=== PATIENT | male | born 1970 | race Caucasian/White ===

== ENCOUNTER 2022-06-01 20:28 | Emergency (ER) | payer OTHER ==
[2022-06-01] MEDS ORDERED: Ketorolac 60 MG/2 ML SDV IM ONE (20:45)
[2022-06-01 21:27] LABS: CORONAVIRUS COVID-19 NAA POSITIVE (NEGATIVE)
== END 2022-06-01 22:13 | disposition home or self-care (01) ==
LOC: JD.ED 20:28
DX: U07.1 COVID-19 (principal); Z88.2 Allergy status to sulfonamides; Z88.0 Allergy status to penicillin; Z88.8 Allergy status to other drugs, medicaments and biological substances
CPT/HCPCS: 0240U; 36415; 71045; 80053; 85025; 86140; 96372; 99283; J1885